=== PATIENT | male | born 1940 | race Caucasian/White ===

== ENCOUNTER → 2017-06-01 | Outpatient (CLI) | payer OTHER, BC ==
[~2017-06-01] MED LIST: AMPHOTERICIN; APAP500 PO; ASPIRIN325 PO; CENTRUM SILVER1 EAC2 PO; CRESTOR; GABAPENTIN100 MG PO; GLIPIZIDE ER5 MG PO; LOPRESSOR 12.12.5 MG PO; METFORMIN HCL500 MG PO; METFORMIN PO; MINIPRIN81 MG PO; MOBIC15 MG; NASONEX17 GM INH; NORCO 5-325 TA1 EACH PO; OMEGA-31000 MG PO; OMEPRAZOLE20 M2 PO; PROBIOTIC1 EACH PO; PROSCAR 5MG TABL5 MG PO; SIMVASTATIN80 MG PO; TAMSULOSIN HCL0.4 MG PO; TRIGLIDE160 M1 PO; TYLOX 5-500 CA1 EACH; ZESTRIL10 MG PO; [UNRECOGNIZED DRUG - OTHER]
== END ==
LOC: ULTRA 12:29
DX: M79.89 Other specified soft tissue disorders (principal)

== ENCOUNTER → 2017-07-23 | Day surgery (SDC) | payer OTHER, BC ==
[~2017-07-23] VITALS: Ht 182.9 cm; Wt 116.6 kg
[~2017-07-23] MED LIST changes: +ACTOS 30 MG TAB30 M1 PO; -APAP500 PO; +ASPIR 8181 MG PO; +CRESTOR20 MG PO; +GLIPIZIDE 10 MG10 MG PO; +LISINOPRIL20 MG PO; +OMEPRAZOLE40 MG PO; +PROBIOTIC1 EAC1 PO; +TOPROL XL25 MG PO; +TYLENOL EXTRA500 MG PO
--- NOTE | ~2017-07-23 | O ---
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 PROCEDURE: Bilateral lower lid ectropion repair with inferior punctoplasty, both eyes. SURGEON: Robert Martinez M.D. MEDICAL SONOGRAPHER: None. ANESTHESIA: MAC. COMPLICATIONS: None. 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 He presents today for bilateral lower lid surgery in order to attempt to improve his tear drainage, ocular surface and visual function. Informed consent was obtained to include but not limited to the potential risk for loss of vision, bleeding, infection, failure to improve the problem, the potential need for further surgery or treatment. DESCRIPTION OF PROCEDURE: The patient was taken to the operating room where 2% Xylocaine with epinephrine mixed with equal parts of 0.75% Marcaine with Wydase was administered transcutaneously and transconjunctivally to each lower lid lateral canthus and medial canthus. The patient was subsequently prepped and draped in the usual sterile fashion. A punctum dilator was then used to dilate the inferior punctum on the left side. A 1-snip punctoplasty was then performed. The punctum dilator was then reintroduced to ensure that the entire internal elastic lamina of the punctum had been severed which it had. Attention was then turned to the other side, where the same procedure was performed. A transconjunctival incision was then made below the inferior border of the [address] [address] OPERATIVE REPORT Name: MILEY LAGUERRE Room #: 150-6 [facility]..#: [id number] Admission: 07/23/17 Attend Phys: Robert Martinez MD Discharge: Date of : 40 Report #: [id number] tarsal plate. Hemostasis was then re-achieved. The dissection was then carried down until the lower lid retractors were identified medially. Hemostasis was re-achieved once more. The lower lid retractors were then advanced and secured to the inferior portion of the tarsal plate with interrupted mattress 6-0 chromic sutures. Attention was then turned to the other side, where the same procedure was performed. The wounds were then cleaned and dressed with erythromycin ointment and the patient subsequently transported to the recovery area having tolerated the procedures well with no anesthetic or operative complications being noted. By: 1335 [id number] Robert Martinez MD /nt
[2017-07-23 13:01] VITALS: BP 125/67
== END | disposition home or self-care (01) ==
LOC: TBA 05:22 → OR 05:22
DX: H02.105 Unspecified ectropion of left lower eyelid (principal); H02.102 Unspecified ectropion of right lower eyelid; H04.563 Stenosis of bilateral lacrimal punctum; I10 Essential (primary) hypertension; E11.9 Type 2 diabetes mellitus without complications; E78.5 Hyperlipidemia, unspecified; N40.0 Benign prostatic hyperplasia without lower urinary tract symptoms; K21.9 Gastro-esophageal reflux disease without esophagitis; M19.90 Unspecified osteoarthritis, unspecified site; Z95.1 Presence of aortocoronary bypass graft; Z87.891 Personal history of nicotine dependence; Z90.49 Acquired absence of other specified parts of digestive tract; Z98.890 Other specified postprocedural states; Z79.899 Other long term (current) drug therapy; Z79.82 Long term (current) use of aspirin
CPT/HCPCS: 50010; 50101; 50386; 50398; 51636; 56531; 62110; 62850; 70005

== ENCOUNTER → 2017-12-24 | Outpatient (CLI) | payer OTHER, BC | LOC: LABMALL 09:04 → CAT 09:04 | PROVIDERS: Neuromusculoskeletal Medicine & OMM | DX: K57.92 Diverticulitis of intestine, part unspecified, without perforation or abscess without bleeding (principal); K57.90 Diverticulosis of intestine, part unspecified, without perforation or abscess without bleeding; M47.896 Other spondylosis, lumbar region; Z90.49 Acquired absence of other specified parts of digestive tract ==

== ENCOUNTER → 2019-09-08 | Outpatient (CLI) | payer OTHER, BC | LOC: MRI 09:16 | DX: M48.061 Spinal stenosis, lumbar region without neurogenic claudication (principal); M48.05 Spinal stenosis, thoracolumbar region ==

== ENCOUNTER → 2019-09-26 | Outpatient (CLI) | payer OTHER, BC | LOC: SJCVCIMAG 10:40 | DX: I08.3 Combined rheumatic disorders of mitral, aortic and tricuspid valves (principal); I65.23 Occlusion and stenosis of bilateral carotid arteries; I44.4 Left anterior fascicular block; I25.10 Atherosclerotic heart disease of native coronary artery without angina pectoris; I42.9 Cardiomyopathy, unspecified; I10 Essential (primary) hypertension; E78.2 Mixed hyperlipidemia; E11.42 Type 2 diabetes mellitus with diabetic polyneuropathy; I45.10 Unspecified right bundle-branch block ==

== ENCOUNTER → 2019-10-10 | Outpatient (CLI) | payer OTHER, BC | LOC: SJCVCIMAG 13:09 | DX: I45.2 Bifascicular block (principal); I42.9 Cardiomyopathy, unspecified; I25.10 Atherosclerotic heart disease of native coronary artery without angina pectoris; I10 Essential (primary) hypertension; E78.5 Hyperlipidemia, unspecified; E11.9 Type 2 diabetes mellitus without complications; Z87.891 Personal history of nicotine dependence ==

== ENCOUNTER → 2019-12-04 | Outpatient (CLI) | payer OTHER, BC | LOC: RAD 11:07 | DX: J98.4 Other disorders of lung (principal); M25.78 Osteophyte, vertebrae ==

== ENCOUNTER → 2019-12-05 | Outpatient (CLI) | payer OTHER, BC | LOC: SJCVC 10:17 | DX: I45.2 Bifascicular block (principal); R94.31 Abnormal electrocardiogram [ECG] [EKG]; I11.9 Hypertensive heart disease without heart failure; I25.118 Atherosclerotic heart disease of native coronary artery with other forms of angina pectoris; E11.42 Type 2 diabetes mellitus with diabetic polyneuropathy; E78.00 Pure hypercholesterolemia, unspecified; E78.5 Hyperlipidemia, unspecified; Z95.1 Presence of aortocoronary bypass graft; Z79.899 Other long term (current) drug therapy; Z82.49 Family history of ischemic heart disease and other diseases of the circulatory system; Z87.891 Personal history of nicotine dependence; Z87.898 Personal history of other specified conditions ==

== ENCOUNTER → 2019-12-08 | Outpatient (CLI) | payer OTHER, BC ==
[~2019-12-08] VITALS: Ht 182.9 cm; Wt 127.0 kg
[2019-12-08 08:44] VITALS: BP 145/69
[2019-12-08 08:55] LABS: HEMATOCRIT 40.6 % (42.0-52.0); HEMOGLOBIN 13.5 gm/dL (14.0-18.0); MCH 30.3 pg (26.0-34.0); MCHC 33.4 g/dL (28.0-37.0); MCV 90.8 fL (80.0-100.0); RBC 4.47 mil/uL (4.50-6.00); WBC 5.8 thou/uL (4.0-11.0)
[2019-12-08 09:05] LABS: CALCIUM 9.2 mg/dL (8.5-10.1); POTASSIUM 3.7 mmol/L (3.5-5.1)
--- NOTE | 2019-12-10 17:31 | CATHLAB ---
[facility] [place] [address] INVASIVE PROCEDURE REPORT Name: MILEY LAGUERRE Room #: REG DUSTIN [facility]#: [id number] Admission: 12/08/19 Attend Phys: Madhav Iniguez MD, Discharge: Date of : 40 Report #: [id number] THIS REPORT FOR: cc: James Bagley Steven F. DO Mancuso, Gerald M. MD [facility] ~ APPROVED REPORT Study performed: 12/08/2019 11:08:21 Patient Details Patient Status: Out-Patient Room #: The patient is a 79 year-old male Event Personnel Madhav Iniguez Nursing Education Specialist, Mitra Verduzco RN RN, Cathy Kellogg Monitor, Jovanny Hale RTR Scrub Procedures Performed Art Access - R femoral artery* Hany Access - R femoral vein 12972 Initial Mod Sed Same Phys/QHP Gr5y 121048 52443 Mod Sed Same Phys/QHP Ea 635547 Right and Left Heart Cath Lt Vent/Cors/Grafts [id number] RLLVCORCAB Hemostasis w/ Mynx Indication Chest pain Procedure Narrative The patient was brought electively to the Cardiac Catheterization Laboratory and was prepped and draped in a sterile manner. The Right Groin^ was infiltrated with 1% Lidocaine subcutaneous anesthesia. A PINNACLE 6FR Sheath #[id number] sheath was inserted into the RFA^. Coronary angiography was performed using coronary diagnostic catheters. The right coronary system was accessed and visualized with a 3DRC catheter. The left coronary system was accessed and visualized with a JL 4 catheter. The left ventricle was accessed and visualized with a Pigtail catheter. Left ventriculogram was performed in AYALA projection. An aortogram of the abdominal aorta was performed. Closure device was deployed with a 5 Fr Mynx. The patient tolerated the procedure well and there were no complications associated with the procedure. There was no hematoma. Intraoperative Conscious Sedation Sedation start time: 11:30 Case end Time: [facility] [address] [address] INVASIVE PROCEDURE REPORT Name: MILEY LAGUERRE Room #: REG [facility]#: [id number] Admission: 12/08/19 Attend Phys: Madhav Iniguez, Discharge: Date of : 40 Report #: [id number] 12:10 Fentanyl 100 mcg Versed 2 mg Fluoro Time: 10.50 minutes Dose: DAP 12408.00 cGycm2 1561 mGy Contrast Type and Amount: Omnipaque 180 ml Hemodynamics The right atrial mean pressure is 17 mmHg. The right ventricular pressure is 46/8 mmHg. The pulmonary artery pressure is 35/22 mmHg with a mean of 26 mmHg. The mean pulmonary capillary wedge pressure is 17 mmHg. The left ventricular pressure is 152/0 mmHg with a mean of mmHg. The left ventricular end diastolic pressure is 19 mmHg. The cardiac output using thermo method is 5.90 L/min. The cardiac index using thermo method is 2.40 L/min/m2. Conclusion 1. Successful right heart catheterization with cardiac output by thermodilution see above hemodynamics. #2 normal left jugular size with LV function lower limits of normal EF 45 to 50% range #3 normal abdominal aortogram no evidence of aneurysm. Iliac system showed wide patency #4 left main mild disease giving rise to an LAD which occludes in a circumflex OM which was moderate in size and mildly diseased #5 LAD occluded proximally #6 AGUILLON to LAD is intact with mild irregularities. There is some retrograde filling of the diagonal system LAD and diagonal are moderately diseased attenuated distally. But no occlusive disease for intervention. #7 a radial graft is intact filling a small to moderate size OM system only mild irregularity. Retrograde filling of a more proximal OM branch #8 large dominant right coronary with an eccentric mid distal lesion of 60% with preserved distal vessel large and dominant TONG PDA system Recommendations and plan: Continue aggressive risk factor modification. Will follow the RCA lesion otherwise grafts are patent. Discharge after CV recovery. Right-sided pressure measurements not significantly elevated will discuss with Dr. Galindo. <ELECTRONICALLY SIGNED> By: Madhav Iniguez MD, FACC 12/10/191728 28 28 Madhav Iniguez MD, FACC /INF
== END | disposition home or self-care (01) ==
LOC: CATH 08:03
PROVIDERS: Internal Medicine Cardiovascular Disease
DX: R07.9 Chest pain, unspecified (principal); I25.10 Atherosclerotic heart disease of native coronary artery without angina pectoris; E11.9 Type 2 diabetes mellitus without complications; I10 Essential (primary) hypertension; K21.9 Gastro-esophageal reflux disease without esophagitis; M19.90 Unspecified osteoarthritis, unspecified site; E78.5 Hyperlipidemia, unspecified; N40.0 Benign prostatic hyperplasia without lower urinary tract symptoms; E66.09 Other obesity due to excess calories; Z95.1 Presence of aortocoronary bypass graft; Z98.890 Other specified postprocedural states; Z79.82 Long term (current) use of aspirin; Z96.652 Presence of left artificial knee joint; Z79.899 Other long term (current) drug therapy; Z87.19 Personal history of other diseases of the digestive system; Z82.49 Family history of ischemic heart disease and other diseases of the circulatory system

== ENCOUNTER → 2019-12-23 | Outpatient (CLI) | payer OTHER, BC | LOC: MRI 09:38 | DX: I67.82 Cerebral ischemia (principal); R26.2 Difficulty in walking, not elsewhere classified; R53.83 Other fatigue; R55 Syncope and collapse; R90.82 White matter disease, unspecified ==

== ENCOUNTER → 2020-03-30 | Outpatient (CLI) | payer OTHER, BC ==
--- NOTE | 2020-04-01 04:00 | EEG ---
[facility] [address] [employer] [place] [address] ELECTROENCEPHALOGRAM Name: MILEY LAGUERRE Room #: REG [facility].#: [id number] Admission: 03/30/20 Attend Phys: Baljeet Lai MD Discharge: Date of : 40 Report #: [id number] THIS REPORT FOR: //name// CC: Baljeet Bagley The patient had an episode of syncope. EEG is being done to evaluate that. EEG was done by placing the electrode by standard 10-20 system of electrode placement. Both referential and sequential montages were used for recording. Background activity in this patient's EEG is about 10 Hz and 30 microvolts. Photic stimulation was unremarkable. The patient went to sleep that is associated with bilaterally symmetrical sleep spindle and vertex sharp waves. Throughout the record, no active epileptiform activity was noticed. IMPRESSION: This patient's EEG is within normal limit. Thank you very much for this referral. <ELECTRONICALLY SIGNED> By: Baljeet Lai MD 04/01/20 0400 04 09 Baljeet Lai MD /nt
== END ==
LOC: NEURO 02-24 16:20
PROVIDERS: ATTEND Psychiatry & Neurology Neuromuscular Medicine
DX: R55 Syncope and collapse (principal); R26.2 Difficulty in walking, not elsewhere classified; R53.83 Other fatigue

== ENCOUNTER 2020-05-20 10:50 | Emergency (ER) | payer OTHER, BC ==
[~2020-05-20] VITALS: Ht 182.9 cm; Wt 127.0 kg
[2020-05-20 12:50] LABS: ABSOLUTE NEUTROPHILS 9.3 thou/uL (1.4-8.2); BASOPHILS 0.4 % (0.0-2.0); EOSINOPHILS 0.5 % (0.0-3.0); HEMATOCRIT 42.2 % (42.0-52.0); HEMOGLOBIN 13.8 gm/dL (14.0-18.0); LYMPHOCYTES 9.6 % (24.0-44.0); MCH 29.1 pg (26.0-34.0); MCHC 32.7 g/dL (28.0-37.0); MCV 89.1 fL (80.0-100.0); MONOCYTES 7.4 % (1.0-8.0); PLATELET COUNT 197 thou/uL (150-400); POLYS 82.1 % (36.0-66.0); RBC 4.74 mil/uL (4.50-6.00); RDW 14.1 % (10.5-14.5); WBC 11.3 thou/uL (4.0-11.0)
[2020-05-20 13:07] LABS: ALBUMIN 3.7 g/dL (3.4-5.0); CALCIUM 9.2 mg/dL (8.5-10.1); CREATININE 1.2 mg/dL (0.7-1.3); POTASSIUM 4.2 mmol/L (3.5-5.1); TOTAL BILIRUBIN 0.7 mg/dL (0.2-1.0); TOTAL PROTEIN 7.9 g/dL (6.4-8.2)
[2020-05-20] MEDS ORDERED: DOXYCYCLINE 10100 MG PO (14:17)
[2020-05-20] MEDS ORDERED: LORCET 5-325 M1 EACH PO (14:17)
[2020-05-20 14:34] VITALS: BP 165/71
== END 2020-05-20 14:35 | disposition home or self-care (01) ==
LOC: ER 10:50
PROVIDERS: Nurse Practitioner
DX: J32.3 Chronic sphenoidal sinusitis (principal); H53.149 Visual discomfort, unspecified; R42 Dizziness and giddiness; M19.90 Unspecified osteoarthritis, unspecified site; E11.9 Type 2 diabetes mellitus without complications; K21.9 Gastro-esophageal reflux disease without esophagitis; I10 Essential (primary) hypertension; E78.5 Hyperlipidemia, unspecified; Z96.652 Presence of left artificial knee joint; Z98.61 Coronary angioplasty status; Z90.49 Acquired absence of other specified parts of digestive tract; Z79.899 Other long term (current) drug therapy; Z79.82 Long term (current) use of aspirin

== ENCOUNTER → 2020-06-07 | Outpatient (CLI) | payer OTHER, BC ==
[~2020-06-07] MED LIST changes: +DOXYCYCLINE 10100 MG PO; +LORCET 5-325 M1 EACH PO
== END ==
LOC: CAT 11:40
PROVIDERS: ATTEND Ophthalmology
DX: J32.0 Chronic maxillary sinusitis (principal); H57.10 Ocular pain, unspecified eye; J34.89 Other specified disorders of nose and nasal sinuses

== ENCOUNTER 2020-07-17 19:23 | Emergency (ER) | payer OTHER, BC ==
[~2020-07-17] VITALS: Ht 182.9 cm; Wt 127.0 kg
[2020-07-17 20:50] VITALS: BP 119/64
== END 2020-07-17 20:50 | disposition home or self-care (01) ==
LOC: ER 19:23
DX: R04.0 Epistaxis (principal); R42 Dizziness and giddiness; R06.02 Shortness of breath; M19.90 Unspecified osteoarthritis, unspecified site; E11.9 Type 2 diabetes mellitus without complications; K21.9 Gastro-esophageal reflux disease without esophagitis; I10 Essential (primary) hypertension; E78.5 Hyperlipidemia, unspecified; Z96.652 Presence of left artificial knee joint; Z90.49 Acquired absence of other specified parts of digestive tract; Z98.890 Other specified postprocedural states; Z79.2 Long term (current) use of antibiotics; Z79.899 Other long term (current) drug therapy

== ENCOUNTER 2020-07-18 16:07 | Inpatient (IN) | payer OTHER, BC ==
[~2020-07-18] VITALS: Ht 182.9 cm; Wt 124.3 kg
--- NOTE | ~2020-07-18 | O ---
[facility] [place] [address] OPERATIVE REPORT Name: MILEY LAGUERRE Room #: 458-P [facility] IN M.R.#: [id number] Admission: 07/18/20 Attend Phys: Vinnie Dinero MD Discharge: 07/20/20 Date of : 40 Report #: [id number] THIS REPORT FOR: cc: James Bagley,Timoteo Bond MD ~ DATE OF SERVICE: 07/20/2020 PREOPERATIVE DIAGNOSIS: Acute epistaxis, bilateral. POSTOPERATIVE DIAGNOSES: 1. Acute epistaxis, bilateral. 2. Right sphenoid sinus lesion. PROCEDURES PERFORMED: 1. Diagnostic nasal endoscopy. 2. Control nasal hemorrhage. 3. Biopsy nasal lesion. PRIMARY SURGEON: Timoteo Nguyen M.D. ASSISTANTS: None. ANESTHESIA: General. ESTIMATED BLOOD LOSS: Approximately 50 mL. SPECIMEN: Right sphenoid lesion. COMPLICATIONS: None. IMPLANTS: None. HISTORY OF PRESENT ILLNESS: The patient is an 80-year-old male who has a long history of severe sinus disease and has undergone a significant sinus operation by Dr. Aaron Lee in approximately 2011 for which he underwent panchal sinus removal including a Lothrop procedure for frontal sinus. Several days ago, he had recurrent epistaxis was seen in the Emergency Department at least 2 times and then eventually kept as an inpatient and an ENT consultation was placed. I evaluated him on the floor and noted that there were significant amounts of unstable appearing clot in the posterior aspect of the patient's nasal cavity that were not able to be adequately managed at the bedside. Therefore, I signed him up for surgery as listed above. He signed consent and agreed to proceed with the procedure after reviewing the risks. DESCRIPTION OF PROCEDURE: The patient was identified in the preoperative area [address] [address] OPERATIVE REPORT Name: MILEY LAGUERRE ILIANA Room #: 458-P [facility] IN ..#: [id number] Admission: 07/18/20 Attend Phys: Vinnie Dinero MD Discharge: 07/20/20 Date of : 40 Report #: [id number] before being transported to the operating room and placed supine on the operating table. At this point, general endotracheal anesthesia was induced and a timeout was called to ensure patient identity and procedure to be performed. Bilateral greater palatine blocks were performed using 1% lidocaine with 1:100,000 epinephrine solution along with a small amount injected into the septum bilaterally, totaling approximately 3 mL. Next, the bilateral nasal cavities were packed with Afrin-soaked pledgets and the patient was prepped and draped in the normal fashion starting first with a 0 degree endoscope on the patient's left side, the pledgets were removed and suction evacuation of copious amount of clot material was performed. There was no active source of bleeding noted on the left side. Of note, there was a very large septal perforation that was noted secondary to his previous Lothrop procedure having been performed. Attention was then turned to the patient's right nasal cavity. Again, the septal perforation was noted and then evacuation of copious amounts of clot material was performed. There was no obvious source of bleeding in the anterior aspect of the nose. There was a small amount of irritated tissue in the right ethmoid cavity and at the posterior aspect of the right enlarged maxillary ostium. This was suction bovied at a setting of 30 tobin until hemostasis was achieved. Further inspection was performed and all of the paranasal sinuses and upon entering the right sphenoid sinus and evacuating clot material, there was a very abnormal appearing mucosal lesion that was ulcerative and friable on the superolateral aspect of the right sphenoid sinus that comprised the majority of this wall. Intraoperative pictures were taken using the endoscopes camera. This area was further evacuated of clot and inspection was performed and no other obvious source of bleeding was noted. Of note, with no disruption to this lesion, it began spontaneously bleeding somewhat. At this point, after inspecting the rest of the nose and not seeing any other abnormality, I elected to take small biopsies of this aforementioned mucosal lesion as it appeared very abnormal. These were taken using a curved cupped forceps and passed off for permanent specimen. Next, several other raw surfaces were suction bovied to achieve hemostasis followed by bilateral FloSeal hemostatic matrix being inserted along with Gelfoam into the sphenoid cavity bilaterally, bilateral ethmoid cavities and a small amount in the right maxillary sinus. A final check for hemostasis was performed and I did not see any other active bleeding. At this point, the patient was reversed from anesthesia and transported to the PACU in stable condition having suffered no untoward event. Please note that all instrument, sponge and needle counts were correct x 2. DISPOSITION: The patient may be returned to the floor under the care of the hospitalist team. It is my opinion that he may be discharged from the hospital as soon as they see fit. I do believe that this patient requires further workup of the sphenoidal lesion as it is in a very precarious position and may represent either a mucosal malignancy or invasion from a surrounding area. It is also in very close proximity to the internal carotid artery and may be representing a sentinel bleed. I have requested that the primary team or [facility] [address] [place] [address] OPERATIVE REPORT Name: MILEY LAGUERRE Room #: 458-P [facility] IN M.R.#: [id number] Admission: 07/18/20 Attend Phys: Vinnie Dinero MD Discharge: 07/20/20 Date of : 40 Report #: [id number] scans to better evaluate this area. He should go home on strict nasal precautions with no straining and no heavy lifting. He should spray both sides of his nose with saline 4-5 times a day and I will see him in the office in approximately 1-2 weeks' time for a followup pathology review and discussion about further investigation and workup of this intranasal sphenoidal lesion. By: 1933 10 Timoteo Nguyen MD /gilles
[2020-07-18 16:30] VITALS: BP 93/45
[2020-07-18 17:28] LABS: ABSOLUTE NEUTROPHILS 5.7 thou/uL (1.4-8.2); BASOPHILS 0.4 % (0.0-2.0); EOSINOPHILS 2.2 % (0.0-3.0); HEMATOCRIT 30.9 % (42.0-52.0); HEMOGLOBIN 10.4 gm/dL (14.0-18.0); LYMPHOCYTES 20.2 % (24.0-44.0); MCH 30.4 pg (26.0-34.0); MCHC 33.7 g/dL (28.0-37.0); MCV 90.3 fL (80.0-100.0); MONOCYTES 9.9 % (1.0-8.0); PLATELET COUNT 195 thou/uL (150-400); POLYS 67.3 % (36.0-66.0); RBC 3.43 mil/uL (4.50-6.00); RDW 15.4 % (10.5-14.5); WBC 8.4 thou/uL (4.0-11.0)
[2020-07-18 17:32] LABS: CALCIUM 9.1 mg/dL (8.5-10.1); CREATININE 1.3 mg/dL (0.7-1.3); POTASSIUM 3.7 mmol/L (3.5-5.1)
[2020-07-18 17:38] LABS: ALBUMIN 2.9 g/dL (3.4-5.0); DIRECT BILIRUBIN 0.1 mg/dL (<0.1-0.2); TOTAL BILIRUBIN 0.5 mg/dL (0.2-1.0); TOTAL PROTEIN 5.9 g/dL (6.4-8.2)
[2020-07-18 17:42] LABS: APTT 24.4 Seconds (24.5-32.8); INR 1.1
[2020-07-18 20:11] VITALS: BP 124/58
[2020-07-18 21:00] VITALS: BP 85/62
[2020-07-18 21:15] VITALS: BP 87/44
[2020-07-19 00:27] VITALS: BP 71/48; BP 96/47
[2020-07-19 05:30] LABS: HEMATOCRIT 28.2 % (42.0-52.0); HEMOGLOBIN 9.5 gm/dL (14.0-18.0); MCH 30.7 pg (26.0-34.0); MCHC 33.7 g/dL (28.0-37.0); MCV 91.3 fL (80.0-100.0); RBC 3.09 mil/uL (4.50-6.00); RDW 15.4 % (10.5-14.5); WBC 8.4 thou/uL (4.0-11.0)
[2020-07-19 05:33] LABS: URINE BILIRUBIN NEGATIVE (Negative); URINE BLOOD NEGATIVE (Negative); URINE CLARITY CLEAR; URINE COLOR YELLOW; URINE GLUCOSE-RANDOM* 2+ (Negative); URINE KETONES NEGATIVE (Negative); URINE LEUKOCYTES NEGATIVE (Negative); URINE NITRITE NEGATIVE (Negative); URINE PROTEIN (DIPSTICK) 1+ (Negative); URINE SPECIFIC GRAVITY >= 1.030 (1.005-1.035); URINE UROBILINOGEN 0.2 E.U./dl (0.2-1.0)
[2020-07-19 05:43] LABS: BACTERIA None Seen /HPF (None Seen); FINE GRANULAR CASTS 0-3 Few /LPF (None Seen); HYALINE CASTS 4-10 Moderate /LPF (None Seen); MUCUS 4-6 Moderate strn/LPF (None Seen); SQUAMOUS 4-10 Moderate /LPF (0-3); URINE RBC None Seen /HPF (0-2); URINE WBC 0-5 Rare /HPF (0-5); WBC CASTS 0-3 Few /LPF (None Seen)
[2020-07-19 05:44] LABS: CRYSTALS None Seen /LPF (None Seen)
--- NOTE | 2020-07-19 07:54 | NUR ---
ADMISSION PT ADMITTED TO ROOM 458 FROM ER WITH EPISTAXIS NOSE BLEEDING PROFUSELY ON ARRIVAL LARGE CLOTS NOTED. PRESSURE APPLIED WITH EFFECT. PT REPORTS DIZZINESS WITH MOVEMENT, BP RUNNING LOW 1000ML'S BOLUS GIVEN AND 1 UNIT OF BLOOD GIVEN PT ON BEDREST VSS IVF INFUSING ORDERED CONTINUE POC.
[2020-07-19 08:11] VITALS: BP 105/52
--- NOTE | 2020-07-19 16:13 | NUR ---
PT ADMITTED RELATED TO EPISTAXIS, ANEMIA, AND HYPOTENSION. CM REVIEWED CHART AND SPOKE WITH CARE TEAM. CM CALLED AND SPOKE WITH PT THIS DAY. PT INDICATED HE LIVES IN A HOUSE WITH 2 STEPS TO ENTER AND NONE INSIDE. 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 ENT CONSULTED. CM TO FOLLOW INDICATED WITH DC PLANNING.
[2020-07-19 19:50] VITALS: BP 119/45
--- NOTE | 2020-07-19 19:58 | NUR ---
ASSUMED PATIENT CARE AT 0700. ASSESSMENT CHARTED. MEDS ADMINISTERED PER MAR. VSS. PATIENT IS A&OX4 AND MAKES NEEDS KNOWN. DENIES PAIN. NO ACTIVE BLEEDING THIS SHIFT. ENT PROVIDER VISITED W PATIENT AND SCHEDULED SURGERY FOR TOMORROW 07/20. PT/OT WORKED W PATIENT AND DETERMINED PATIENT IS INDEPENDENT. SBA FOR IV POLE W FLUIDS INFUSING. R FA IV REINFORCED. NEW MEDS ORDERED. VOICES NO OTHER NEEDS AT THIS TIME. WILL CONTINUE TO MONITOR AND ENDORSE TO NIGHT NURSE.
--- NOTE | 2020-07-20 02:45 | NUR ---
PT CARE ASSUMED WITH PT IN BED WATCHING TV.PT IS ALERT AND ORIENTED X4.PT IS STANDBY ASSIST.PT IS ACCUCHECK ACHS WITH LOW SSI.PT NPO MIDNIGHT FOR SURGERY TODAY.PT HAD NO NOSE BLEEDING TILL THIS MOMENT.WILL CONTINUE TO MONITOR POC
[2020-07-20 04:43] VITALS: BP 120/39
[2020-07-20 09:43] VITALS: BP 148/59
[2020-07-20] MEDS ORDERED: DEEP SEA NASAL44 M1 NASAL (11:26)
[2020-07-20 11:34] VITALS: BP 148/59
--- NOTE | 2020-07-20 12:06 | NUR ---
ASSUMED PT CARE THIS AM. PT VSS, A&OX4. PT SENT TO PROCEDURE PRIOR TO SHIFT CHANGE, RECEIVED BACK FROM SURGERY AT 0940. P TDRESSING IS C/D/I. DISCHARGE ORDERS IN PLACE. DISCHARGE WENT OVER WITH PATIENT, IV TAKEN OUT. AFTER THIS WAS COMPLETED, NEW ORDER WAS PUT IN FOR A CT, BINDERY LEADPERSON NOTED THAT SURGEON WANTS THIS COMPLETED PRIOR TO DISCHARGE. PT AWAITING CT.
--- NOTE | 2020-07-22 16:06 | PATH ---
[facility] [address] [place] [address] PATHOLOGY RPT PROCEDURE Name: MILEY HARVEY Room #: 458-P DIS IN M.R.#: [id number] Admission: 07/18/20 Date of : 40 Discharge: 07/20/20 Report #: [id number] Path Case #: [id number] [facility] Accession Number: [id number] . 01 Material submitted: . sinus, sphenoid - RIGHT SPHENOIDAL LESION. Modifiers: right . 01 Clinician provided ICD-10: R04.0 D64.9 . 02 Diagnosis: Right sphenoidal lesion: - Specimen predominantly (90%) comprised of fibrin and elements of peripheral blood. - Scant fragments of sinonasal mucosa with moderate acute and chronic inflammation as well as changes compatible with granulation tissue, history of epistaxis. - Negative for dysplasia or malignancy. (IUV/db; 07/22/2020) LBQ 07/22/2020 1441 Local . 02 Electronically signed: . Shauna Calvillo MD, Pathologist NPI- [id number] . 01 Gross description: . The specimen is received in formalin, labeled "Miley Harvey, right sphenoidal lesion". Received is a moderate amount of blood coagulum admixed with pale lópez possible soft tissue measuring 2.0 x 1.3 x 0.4 cm in aggregate dimensions. The specimen is filtered and entirely submitted in cassette A1. (CAA; 07/21/2020) QAC/QAC 07/21/2020 1740 Local . 02 Pathologist provided ICD-10: J32.3, J01.30 . 02 CPT . 582633 Specimen Comment: A courtesy copy of this report has been sent to [phone], [phone] Specimen Comment: [phone], , Specimen Comment: Report sent to ,DR SHRESTHA,DR PEREZ / DR HOWE Performed at: [address], [place] [id number] [place] [address] PATHOLOGY RPT PROCEDURE Name: MILEY HARVEY Room #: 458-P DIS IN M.R.#: [id number] Admission: 07/18/20 Date of : 40 Discharge: 07/20/20 Report #: [id number] Path Case #: [id number] MD Rafael Dillard MD Phone: [phone] Performed at: [address] [id number] MD Shauna Calvillo MD Phone: [phone]
== END 2020-07-20 15:00 | disposition home or self-care (01) | DRG 151 ==
LOC: ER 16:07 → 4W 18:45 → EROBS 18:45 → 4W 20:13
PROVIDERS: Emergency Medicine; Nurse Practitioner Family; ADMIT Hospitalist; ATTEND Hospitalist
PROC: 093K8ZZ Control Bleeding in Nasal Mucosa and Soft Tissue, Via Natural or Artificial Opening Endoscopic (ICD-10-PCS; 2020-07-18)
PROC: 09BK8ZX Excision of Nasal Mucosa and Soft Tissue, Via Natural or Artificial Opening Endoscopic, Diagnostic (ICD-10-PCS; 2020-07-18)
PROC: 30233N1 Transfusion of Nonautologous Red Blood Cells into Peripheral Vein, Percutaneous Approach (ICD-10-PCS; principal; 2020-07-19)
DX: R04.0 Epistaxis (principal); D64.9 Anemia, unspecified; I95.9 Hypotension, unspecified; M19.90 Unspecified osteoarthritis, unspecified site; K21.9 Gastro-esophageal reflux disease without esophagitis; N40.0 Benign prostatic hyperplasia without lower urinary tract symptoms; E78.5 Hyperlipidemia, unspecified; I10 Essential (primary) hypertension; Z96.652 Presence of left artificial knee joint; J34.89 Other specified disorders of nose and nasal sinuses; E11.42 Type 2 diabetes mellitus with diabetic polyneuropathy; I25.10 Atherosclerotic heart disease of native coronary artery without angina pectoris; G47.00 Insomnia, unspecified; Z20.828 Contact with and (suspected) exposure to other viral communicable diseases; Z90.49 Acquired absence of other specified parts of digestive tract; Z86.010 Personal history of colon polyps; Z95.1 Presence of aortocoronary bypass graft; Z79.899 Other long term (current) drug therapy
CPT/HCPCS: 10045; 50010; 50101; 50386; 50398; 51751; 62110; 62900; 70005

== ENCOUNTER 2020-07-28 00:36 | Observation (INO) | payer OTHER, BC ==
[~2020-07-28] VITALS: Ht 182.9 cm; Wt 122.5 kg
[~2020-07-28 00:36] MED LIST changes: +DEEP SEA NASAL44 M1 NASAL
[2020-07-28 00:41] VITALS: BP 107/35
[2020-07-28 01:20] LABS: ABSOLUTE NEUTROPHILS 6.8 thou/uL (1.4-8.2); BASOPHILS 0.4 % (0.0-2.0); EOSINOPHILS 1.9 % (0.0-3.0); HEMATOCRIT 22.6 % (42.0-52.0); HEMOGLOBIN 7.4 gm/dL (14.0-18.0); LYMPHOCYTES 7.5 % (24.0-44.0); MCH 30.2 pg (26.0-34.0); MCHC 32.6 g/dL (28.0-37.0); MCV 92.8 fL (80.0-100.0); PLATELET COUNT 229 thou/uL (150-400); POLYS 81.2 % (36.0-66.0); RBC 2.44 mil/uL (4.50-6.00); RDW 16.5 % (10.5-14.5); WBC 8.4 thou/uL (4.0-11.0)
[2020-07-28 01:25] LABS: ANION GAP 13 mmol/L (7-16); BUN 26 mg/dL (7-18); CALCIUM 8.7 mg/dL (8.5-10.1); CHLORIDE 103 mmol/L (98-107); CO2 23 mmol/L (21-32); CREATININE 1.4 mg/dL (0.7-1.3); GLUCOSE 272 mg/dL (74-106); SODIUM 139 mmol/L (136-145)
[2020-07-28 01:30] LABS: TROPONIN-I <0.06 ng/mL (<0.06)
[2020-07-28 05:36] VITALS: BP 104/44
--- NOTE | 2020-07-28 05:45 | NUR ---
Called to 4W unit ,phone rang for over 7 minutes and nobody answered
[2020-07-28 05:48] VITALS: BP 110/45
[2020-07-28 06:28] VITALS: BP 130/58
--- NOTE | 2020-07-28 07:58 | EKG ---
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 : 1940 Requested By: Joe Snider Order Number: [id number] MD: Toy Plata Measurements Intervals Nelson Rate: 85 P: -10 GA: 183 QRS: -47 QRSD: 159 T: 64 QT: 441 QTc: 525 Interpretive Statements Sinus rhythm RBBB and LAFB Left ventricular hypertrophy Compared to ECG 09/14/2011 07:27:07 Left ventricular hypertrophy now present Sinus tachycardia no longer present No significant changes found Electronically Signed On 07-28-2020 7:58:45 BACKBREAKER by Toy Plata [email or web address] <ELECTRONICALLY SIGNED> By: Toy Plata MD, [facility] 07/28/20 0758 0045 0045 Toy Plata MD, [facility] /EPI
--- NOTE | 2020-07-28 15:04 | NUR ---
PT ADMITTED RELATED TO EPISTAXIS AND NEAR SYNCOPE. PT HAD BEEN HERE RECENTLY RELATED TO SAME DX AND HAD BIOSY DONE AND FOLLOWED UP WITH OP ENT 07/27. CM REVIEWED CHART AND SPOKE WITH CARE TEAM. CM CALLED AND SPOKE WITH PT THIS DAY. PT INDICATED HE LIVES IN A HOUSE WITH 2 STEPS TO ENTER AND A FULL FLIGHT TO BASEMENT. 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 ENT CONSULTED AGAIN AWAITING THEIR VISIT. CM TO FOLLOW INDICATED WITH DC PLANNING.
[2020-07-28 17:05] VITALS: BP 103/47
--- NOTE | 2020-07-28 18:02 | NUR ---
Assumed pt care at 7am.Pt in and out of bed with walker and assist X1. Assessment completed.vss.Pt refused insulin but took oral blood sugar med. Dr bales here,order noted.Later this evening,Dr Ashley rounded on pt and additional order noted.Will continue to monitor.
[2020-07-28 20:26] VITALS: BP 126/62
[2020-07-29 06:32] LABS: HEMATOCRIT 22.2 % (42.0-52.0); HEMOGLOBIN 7.5 gm/dL (14.0-18.0); MCH 30.6 pg (26.0-34.0); MCHC 33.6 g/dL (28.0-37.0); MCV 91.3 fL (80.0-100.0); RBC 2.44 mil/uL (4.50-6.00); RDW 16.5 % (10.5-14.5); WBC 6.5 thou/uL (4.0-11.0)
[2020-07-29 06:50] LABS: CALCIUM 8.9 mg/dL (8.5-10.1); CREATININE 1.1 mg/dL (0.7-1.3); POTASSIUM 4.2 mmol/L (3.5-5.1)
--- NOTE | 2020-07-29 07:28 | NUR ---
[facility] LETTER GIVEN TO PATIENT IN CONJUNTION WITH ADMISSION PACKET COPY GIVEN BY REGISTRATION.
[2020-07-29 07:37] VITALS: BP 144/68
--- NOTE | 2020-07-29 07:49 | NUR ---
PATIENT AOX4 MAKES NEEDS KNOWN. PATIENT REEFUSED INSULIN AND NASAL SPRAY. FALL PRECAUTION IN PLACE. PATIENT IN BED ASLEEP AT THIS TIME BREATHING REGULAR AND UNLABOURED.
[2020-07-29] MEDS ORDERED: CEFDINIR300 MG PO (12:07)
[2020-07-29] MEDS ORDERED: FLONASE 0.05%50 MCG NASAL (12:07)
[2020-07-29] MEDS ORDERED: PREDNISONE 20 M20 M1 PO (12:07)
[2020-07-29] MEDS ORDERED: FEOSOL325 M1 PO (12:09)
[2020-07-29 12:31] VITALS: BP 144/68
--- NOTE | 2020-07-29 13:53 | NUR ---
PT WAS SEEN BY ENT. THEY INDICATED THAT PT IS TO FOLLOW UP IN 3 WEEKS OP. PT TO DC HOME THIS DAY TO SELF CARE. NO OTHER CM INTERVENTION INDICATED. CASE CLOSED.
--- NOTE | 2020-07-29 14:37 | NUR ---
Assumed pt care at 7am.Pt in and out of bed with sba.Assessment completed.vss. 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
== END 2020-07-29 14:00 | disposition home or self-care (01) ==
LOC: ER 00:36 → 4W 05:20 → EROBS 05:20 → 4W 05:20
PROVIDERS: Emergency Medicine; Nurse Practitioner Family; ADMIT Internal Medicine; ATTEND Internal Medicine
DX: R04.0 Epistaxis (principal); E78.5 Hyperlipidemia, unspecified; R55 Syncope and collapse; I10 Essential (primary) hypertension; D64.9 Anemia, unspecified; K21.9 Gastro-esophageal reflux disease without esophagitis; E11.9 Type 2 diabetes mellitus without complications; I25.10 Atherosclerotic heart disease of native coronary artery without angina pectoris; N40.0 Benign prostatic hyperplasia without lower urinary tract symptoms; Z95.1 Presence of aortocoronary bypass graft; Z20.828 Contact with and (suspected) exposure to other viral communicable diseases
CPT/HCPCS: 10045

== ENCOUNTER → 2020-12-27 | Outpatient (CLI) | payer OTHER, BC ==
[~2020-12-27] MED LIST changes: +CEFDINIR300 MG PO; +FEOSOL325 M1 PO; +FLONASE 0.05%50 MCG NASAL; +PREDNISONE 20 M20 M1 PO
== END ==
LOC: MRI 11:01
PROVIDERS: ATTEND Neuromusculoskeletal Medicine & OMM
DX: M51.26 Other intervertebral disc displacement, lumbar region (principal); M51.25 Other intervertebral disc displacement, thoracolumbar region; M48.061 Spinal stenosis, lumbar region without neurogenic claudication; M47.816 Spondylosis without myelopathy or radiculopathy, lumbar region; M47.817 Spondylosis without myelopathy or radiculopathy, lumbosacral region; M48.07 Spinal stenosis, lumbosacral region; M48.00 Spinal stenosis, site unspecified; M79.605 Pain in left leg; M79.604 Pain in right leg

== ENCOUNTER → 2021-03-07 | Outpatient (CLI) | payer OTHER, BC ==
[2021-03-07 09:12] LABS: CREATININE 1.3 mg/dL (0.7-1.3)
[2021-03-07 09:18] LABS: PROTIME 10.9 Seconds (10.5-12.1)
--- NOTE | 2021-03-07 11:13 | NUR ---
PT DC'D PER WC BY STAFF AT 1100. VSS. PULSE 62; BP 134/55. BANDAID DRESSING ON BACK CLEAN DRY INTACT. PT AND FAMILY VERBALIZE UNDERSTANDING OF DC INST.
== END | disposition home or self-care (01) ==
LOC: RAD 08:17
PROVIDERS: ATTEND Specialist
DX: M54.16 Radiculopathy, lumbar region (principal); M51.36 Other intervertebral disc degeneration, lumbar region; M48.061 Spinal stenosis, lumbar region without neurogenic claudication; M43.16 Spondylolisthesis, lumbar region; Z79.899 Other long term (current) drug therapy

== ENCOUNTER 2021-04-07 06:39 | Day surgery (SDC) | payer OTHER, BC ==
[~2021-04-07] VITALS: Ht 182.9 cm; Wt 131.5 kg
--- NOTE | ~2021-04-07 | O ---
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 PROCEDURE: Left lower lid ectropion repair with transconjunctival left lower lid and cheek lift. SURGEON: Robert Martinez MD HEALTH INFORMATION ADMINISTRATOR: None. ANESTHESIA: MAC. COMPLICATIONS: None. 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 He presents today for a repeat left lower lid and cheek procedure in order to attempt to preserve his ocular surface milieu and improve his level of function. Informed consent was obtained to include but not limited to the potential risk for loss of vision, bleeding, infection, failure to improve the problem, and the potential need for further surgery or treatment. DESCRIPTION OF PROCEDURE: The patient was taken to the operating room where 2% Xylocaine with epinephrine mixed with equal parts 0.75% Marcaine with Wydase was administered transcutaneously and transconjunctivally to the left lower lid, left lateral canthus, left infratemporal fossa and the left cheek. The patient was then prepped and draped in the usual sterile fashion. The left lateral canthus was then clamped with a Herrera clamp. Sharp canthotomy and cantholysis was then performed. Hemostasis was then re-achieved with monopolar cautery. A tarsal strip was then prepared laterally removing the lash bearing portion of the redundant lid margin and the redundant tarsal plate. [address] [address] OPERATIVE REPORT Name: MILEY LAGUERRE Room #: 150-3 [facility]..#: [id number] Admission: 04/07/21 Attend Phys: Robert Martinez MD Discharge: Date of : 40 Report #: [id number] Hemostasis was once more re-achieved. Attention was then turned to the lower lid and cheek lift. A transconjunctival incision was then made below the inferior border of the tarsal plate. Hemostasis was then re-achieved. The dissection was then carried down into the premalar tissues utilizing sharp techniques. Hemostasis was once more re-achieved. The lower lid and cheek tissues were then elevated and resuspended with interrupted mattress 5-0 chromic sutures. The lower lid and cheek lifted well. Attention was then turned to completion of the ectropion repair. The tarsal strip was then resecured to the internal portion of the lateral orbital tubercle with interrupted 5-0 Prolene sutures. The subcutaneous structures and the skin were then advanced and closed with interrupted 6-0 plain gut sutures. The wounds were then cleaned and dressed with erythromycin ophthalmic ointment. The patient subsequently transported to the recovery area having tolerated the procedures well with no anesthetic or operative complications being noted. By: [id number] Robert Martinez MD /nt
[~2021-04-07 06:39] MED LIST changes: +ACTOS 45 MG45 M2 PO; +ASA81BEC PO; +CELECOXIB200 MG PO; +CULTURELLE KID1 EAC2 PO; +EZETIMIBE10 MG PO; +INSULIN LI100 UNIT/2 SUBQ; +LANTUS SOL100 UNIT/1 SUBQ; +METOPROLOL SUCC25 M1 PO; +NEURONTIN 300M300 M2 PO; +OYSCO 500+D TA1 EACH PO; +ROSUVASTATIN CA40 MG PO
[2021-04-07 08:00] VITALS: BP 152/61
== END 2021-04-07 09:25 | disposition home or self-care (01) ==
LOC: OR 06:39 → TBA 06:43 → OR 09:25
PROVIDERS: ATTEND Ophthalmology
DX: H02.105 Unspecified ectropion of left lower eyelid (principal); H02.535 Eyelid retraction left lower eyelid; H02.205 Unspecified lagophthalmos left lower eyelid; H18.9 Unspecified disorder of cornea; I10 Essential (primary) hypertension; E78.5 Hyperlipidemia, unspecified; E11.9 Type 2 diabetes mellitus without complications; K21.9 Gastro-esophageal reflux disease without esophagitis; M19.90 Unspecified osteoarthritis, unspecified site; N40.0 Benign prostatic hyperplasia without lower urinary tract symptoms; Z98.890 Other specified postprocedural states; Z79.899 Other long term (current) drug therapy; Z87.891 Personal history of nicotine dependence; Z95.1 Presence of aortocoronary bypass graft; Z20.822 Contact with and (suspected) exposure to COVID-19; Z96.642 Presence of left artificial hip joint
CPT/HCPCS: 50010; 50101; 50386; 50398; 51636; 56527; 56531; 62110; 62850; 70005

== ENCOUNTER → 2021-04-19 | Outpatient (CLI) | payer OTHER, BC | LOC: SJCVCIMAG 07:26 | PROVIDERS: ATTEND Internal Medicine Cardiovascular Disease | DX: I45.10 Unspecified right bundle-branch block (principal); I49.3 Ventricular premature depolarization; I25.10 Atherosclerotic heart disease of native coronary artery without angina pectoris; R06.00 Dyspnea, unspecified; I42.9 Cardiomyopathy, unspecified; I10 Essential (primary) hypertension; E78.5 Hyperlipidemia, unspecified; E11.9 Type 2 diabetes mellitus without complications; Z87.891 Personal history of nicotine dependence; Z79.899 Other long term (current) drug therapy; Z95.1 Presence of aortocoronary bypass graft ==

== ENCOUNTER → 2021-05-03 | Outpatient (CLI) | payer OTHER, BC ==
[~2021-05-03] VITALS: Ht 182.9 cm; Wt 132.4 kg
[~2021-05-03] MED LIST changes: +ACTOS 45 MG45 MG PO; +CULTURELLE KID1 EAC1 PO; +LANTUS SUBQ; +NOVOLOG100 UNIT/M SUBQ
[2021-05-03 07:27] VITALS: BP 129/56
[2021-05-03 08:07] LABS: HEMATOCRIT 35.8 % (42.0-52.0); HEMOGLOBIN 11.6 gm/dL (14.0-18.0); MCH 27.4 pg (26.0-34.0); MCHC 32.5 g/dL (28.0-37.0); MCV 84.3 fL (80.0-100.0); RBC 4.25 mil/uL (4.50-6.00); RDW 14.7 % (10.5-14.5); WBC 6.1 thou/uL (4.0-11.0)
[2021-05-03 08:44] LABS: CREATININE 1.2 mg/dL (0.7-1.3); POTASSIUM 4.1 mmol/L (3.5-5.1)
--- NOTE | 2021-05-03 15:15 | CATHLAB ---
[facility] [place] [address] INVASIVE PROCEDURE REPORT Name: MILEY LAGUERRE Room #: REG DUSTIN [facility]#: [id number] Admission: 05/03/21 Attend Phys: Madhav Iniguez MD, Discharge: Date of : 40 Report #: [id number] THIS REPORT FOR: cc: James Bagley,Madhav Mensah MD [facility] ~ APPROVED REPORT Study performed: 05/03/2021 08:12:16 Patient Details Patient Status: Out-Patient Room #: The patient is a 81 year-old male Event Personnel Madhav Iniguez Chef & Owner, Joan Wolf RTR Monitor, Junie Moody RTR, ANITHA Scrub, Margarita Rios RTR Scrub, Kurt Fisher RN music adapter Performed Art Access - R femoral artery* Hany Access - R femoral vein Right and Left Heart Cath w/or w/o Coronarie [id number] [facility] Hemostasis w/ Mynx 08853 Initial Mod Sed Same Phys/QHP Gr5y [id number] 00617 Mod Sed Same Phys/QHP Ea [id number] Procedure Narrative The Right Groin^ was infiltrated with 1% Lidocaine subcutaneous anesthesia. A PINNACLE 6FR Sheath #[id number] sheath was inserted into the RFA. Coronary angiography was performed using coronary diagnostic catheters. The right coronary system was accessed and visualized with a JR4 catheter. The left coronary system was accessed and visualized with a JL4 catheter. The left ventricle was accessed and visualized with a STRAIGHT PIGTAIL catheter. Left ventriculogram was performed in 30 degree projection. Closure device was deployed with a Fr MYNXGRIP 6/7F #[id number]. The patient tolerated the procedure well and there were no complications associated with the procedure. There was no hematoma. Intraoperative Conscious Sedation Sedation start time: 9:11 Case end Time: 10:04 Fentanyl 100 mcg Versed 2.0 mg Fluoro Time: 11.60 minutes [facility] [address] [place] [address] INVASIVE PROCEDURE REPORT Name: MILEY LAGUERRE Room #: REG [facility]#: [id number] Admission: 05/03/21 Attend Phys: Madhav Iniguez, Discharge: Date of : 40 Report #: [id number] Dose: DAP 47797.90 cGycm2 2974 mGy Contrast Type and Amount: Visipaque 120 ml Hemodynamics The right atrial mean pressure is 9 mmHg. The right ventricular pressure is 35/2 mmHg. The pulmonary artery pressure is 38/8 mmHg with a mean of 21 mmHg. The mean pulmonary capillary wedge pressure is 13 mmHg. The aortic pressure is 151/60 mmHg with a mean of 86 mmHg. The left ventricular pressure is 134/-3 mmHg with a mean of mmHg. The left ventricular end diastolic pressure is 15 mmHg. The cardiac output using thermo method is 8.30 L/min. The cardiac index using thermo method is 3.33 L/min/m2. Conclusion #1 Successful right heart catheterization with cardiac output by thermodilution. See above hemodynamics. #2 normal left jugular size LV function lower limits of normal EF 45 to 50% range. #3 left main is large and free of disease giving rise to LAD and circumflex. #4 the LAD is proximally occluded. #5 a large ramus branch is widely patent. The circumflex is an small nondominant and occludes proximally. #6 a AGUILLON to LAD is intact it is briskly filling in LAD which is mildly diseased around the apex and smaller caliber. Retrograde filling the diagonal branch. No occlusive disease. #7 a probable radial graft which is small filling a small OM branch is patent. 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 #8 large dominant right coronary artery with mild irregularities. There is distal stents previously placed which appeared to be widely patent. Recommendations and plan: Continue aggressive risk factor modification there is no indication for coronary intervention. Dyspnea shortness of breath is not appear to be of cardiac or pulmonary pressure etiology. No evidence of volume overload. <ELECTRONICALLY SIGNED> By: Madhav Iniguez MD, FACC 05/03/21 1515 14 14 Madhav Iniguez MD, FACC /INF
== END | disposition home or self-care (01) ==
LOC: CATH 04-28 07:20
PROVIDERS: ATTEND Internal Medicine Cardiovascular Disease
DX: I25.10 Atherosclerotic heart disease of native coronary artery without angina pectoris (principal); I10 Essential (primary) hypertension; E11.9 Type 2 diabetes mellitus without complications; E78.5 Hyperlipidemia, unspecified; K21.9 Gastro-esophageal reflux disease without esophagitis; N40.0 Benign prostatic hyperplasia without lower urinary tract symptoms; M19.90 Unspecified osteoarthritis, unspecified site; Z98.890 Other specified postprocedural states; Z96.652 Presence of left artificial knee joint; Z87.19 Personal history of other diseases of the digestive system; Z90.49 Acquired absence of other specified parts of digestive tract; Z79.899 Other long term (current) drug therapy; Z79.4 Long term (current) use of insulin; Z95.1 Presence of aortocoronary bypass graft; Z87.891 Personal history of nicotine dependence

== ENCOUNTER → 2021-08-29 | Outpatient (CLI) | payer OTHER, BC | LOC: ULTRA 11:10 | PROVIDERS: ATTEND Family Medicine | DX: R22.32 Localized swelling, mass and lump, left upper limb (principal) ==

== ENCOUNTER → 2021-09-20 | Outpatient (CLI) | payer OTHER, BC | LOC: SJCVC 03:15 | PROVIDERS: ATTEND Internal Medicine Cardiovascular Disease | DX: R94.31 Abnormal electrocardiogram [ECG] [EKG] (principal); I25.810 Atherosclerosis of coronary artery bypass graft(s) without angina pectoris; I10 Essential (primary) hypertension; R06.02 Shortness of breath; E78.00 Pure hypercholesterolemia, unspecified; I45.2 Bifascicular block; E11.42 Type 2 diabetes mellitus with diabetic polyneuropathy; I25.10 Atherosclerotic heart disease of native coronary artery without angina pectoris; E78.5 Hyperlipidemia, unspecified; I65.23 Occlusion and stenosis of bilateral carotid arteries; Z87.891 Personal history of nicotine dependence; Z72.89 Other problems related to lifestyle; Z79.899 Other long term (current) drug therapy; Z79.84 Long term (current) use of oral hypoglycemic drugs; Z82.49 Family history of ischemic heart disease and other diseases of the circulatory system ==

== ENCOUNTER → 2021-10-07 | Outpatient (CLI) | payer OTHER, BC | LOC: MRI 08:48 | PROVIDERS: ATTEND Specialist | DX: M47.814 Spondylosis without myelopathy or radiculopathy, thoracic region (principal); M96.1 Postlaminectomy syndrome, not elsewhere classified; M48.04 Spinal stenosis, thoracic region ==